=== PATIENT | female | born 1955 | race Caucasian/White ===

== ENCOUNTER → 2023-10-16 10:13 | Outpatient (REF) | payer OTHER, SELFPAY | LOC: WDC 10:13 | PROVIDERS: ATTENDING PHYSICIAN Physician Assistant | DX: Z12.31 Encounter for screening mammogram for malignant neoplasm of breast (principal) | CPT/HCPCS: 77063; 77067 ==

== ENCOUNTER → 2023-10-21 12:35 | Outpatient (REF) | payer OTHER, SELFPAY | LOC: HWRAD 12:35 | PROVIDERS: ATTENDING PHYSICIAN Physician Assistant | DX: R82.90 Unspecified abnormal findings in urine (principal); R14.0 Abdominal distension (gaseous) | CPT/HCPCS: 76830; 76856 ==

== ENCOUNTER → 2023-10-26 10:19 | Outpatient (REF) | payer OTHER, SELFPAY | LOC: WDC 10:19 | PROVIDERS: ATTENDING PHYSICIAN Physician Assistant | DX: R92.8 Other abnormal and inconclusive findings on diagnostic imaging of breast (principal) | CPT/HCPCS: 77065 ==

== ENCOUNTER → 2023-11-03 06:33 | Outpatient (REF) | payer OTHER, SELFPAY ==
--- NOTE | 2023-11-03 09:50 | OID.BR.INTR ---
COURTNEYD Breast Navigator - Initial
- -
Date of Contact: 11/03/23
Met with patient. Patient given written information on navigator services and support services available at [facility]. Will follow up as needed per protocol.
== END ==
LOC: WDC 06:33
PROVIDERS: ATTENDING PHYSICIAN Physician Assistant
DX: R92.1 Mammographic calcification found on diagnostic imaging of breast (principal)
CPT/HCPCS: 88305; 19081; 76098; 88341; 88342; 88360; A4648

== ENCOUNTER → 2023-11-11 07:33 | Outpatient (REF) | payer OTHER, SELFPAY | LOC: WDC 07:33 | PROVIDERS: ATTENDING PHYSICIAN Surgery; FAMILY PHYSICIAN Physician Assistant | DX: R92.2 Inconclusive mammogram (principal); C50.412 Malignant neoplasm of upper-outer quadrant of left female breast; Z17.0 Estrogen receptor positive status [ER+] | CPT/HCPCS: 76641 ==

== ENCOUNTER → 2023-11-17 08:52 | Outpatient (REF) | payer OTHER, SELFPAY | LOC: WDC 08:52 | PROVIDERS: ATTENDING PHYSICIAN Surgery; FAMILY PHYSICIAN Physician Assistant | DX: N63.11 Unspecified lump in the right breast, upper outer quadrant (principal) | CPT/HCPCS: 88305; 19083; 77065; 88342; 88360; A4648 ==

== ENCOUNTER → 2023-12-04 09:20 | Outpatient (REF) | payer OTHER, SELFPAY | LOC: RCS 09:20 | PROVIDERS: ATTENDING PHYSICIAN Obstetrics & Gynecology Gynecology; FAMILY PHYSICIAN Physician Assistant | DX: N85.00 Endometrial hyperplasia, unspecified (principal) | CPT/HCPCS: 93005 ==

== ENCOUNTER → 2023-12-31 13:40 | Outpatient (REF) | payer OTHER, SELFPAY | LOC: WDC 13:40 | PROVIDERS: ATTENDING PHYSICIAN Surgery; FAMILY PHYSICIAN Physician Assistant | DX: C50.412 Malignant neoplasm of upper-outer quadrant of left female breast (principal); Z17.0 Estrogen receptor positive status [ER+] | CPT/HCPCS: 19281; 38792; A4648; A9541 ==

== ENCOUNTER 2024-01-01 06:16 | Day surgery (SDC) | payer OTHER, SELFPAY ==
[2023-12-29 07:26] VITALS: BMI 26.7
[2023-12-29 08:48] LABS: Hematocrit 46.3 % (37.0-47.0); Mean Corp Hgb Conc. 34.6 g/dL (33.0-37.0); Mean Corpuscular Hgb 29.6 pg (27.0-31.0); Mean Corpuscular Volume 85.7 fL (81.0-99.0); Mean Platelet Volume 9.6 fL (7.4-10.4); Platelet Count 315 10^3/uL (130-400); Red Cell Dist. Width 12.1 % (11.5-14.5); White Blood Cell Count 5.4 10^3/uL (4.8-10.8)
[2023-12-29 09:10] LABS: ALT (SGPT) 19 U/L (0-35); AST (SGOT) 24 U/L (14-36); Albumin 4.3 g/dl (3.5-5.0); Alkaline Phosphatase 78 U/L (38-126); Blood Urea Nitrogen 16 mg/dl (7-17); Carbon Dioxide 29 mmol/L (22-30); Chloride 103 mmol/L (98-107); Estimated Creatinine Clearance 84 ml/min; Glucose 130 mg/dl (70-99); Potassium 4.7 mmol/L (3.5-5.1); Sodium 139 mmol/L (135-145); Total Bilirubin 1.2 mg/dl (0.2-1.3); Total Protein 6.9 g/dl (6.3-8.2); eGFR > 60.00
[2023-12-29 09:52] LABS: Prealbumin (Transthyretin) 23.6 mg/dl (17.6-36.0)
[2023-12-29 10:03] LABS: Vitamin D, 25-OH*** 24.1 ng/mL (30-80)
[2024-01-01] VITALS (11 sets, daily range): BP systolic 124–156; BP diastolic 64–90; BMI 26.6; BMI 26.7
[2024-01-01] MEDS: TYLENOL 1000 MG PO (07:41)
[2024-01-01] MEDS: LOVENOX 40 MG SC (09:35)
--- NOTE | 2024-01-01 12:18 | W.IMMPOSTOP ---
Surgical Immed Post Op Note
-
Primary Surgeon: Roxana
Assisting Surgeon: None
Pre-op Diagnosis: Left breast ca
Post-op Diagnosis: Same
Procedure Performed: Left localized lumpectomy sentinel node mapping and biopsy
Anesthesia Type: TIVA converted to GET
Specimen / Cultures: Left lumpectomy, sentinel nodes, margins
Estimated Blood Loss: 4cc
Complications: None
Operative Findings: Negative nodes on frozen section; clip and mass in specimen
Smithwick Node Bx Breast Cancer
Smithwick Node Bx Breast Cancer
Operation performed with curative intent: Yes
Tracer(s) to ID [place] Nodes in Non-Neoadjuvant setting: Radioactive Tracer
Tracer(s) to ID Sentinal Nodes in the Neoadjuvant Setting: N/A
All nodes at end of dye-filled Lymphatic Channel removed: N/A
All Significantly Radioactive Nodes were removed: Yes
All Palpably Suspicious Nodes were Removed: Yes
Bx Proven Pos Nodes Marked Prior to Chemo ID'd & Removed: N/A
[2024-01-01] MEDS: SUBLIMAZE 25 MCG IV (13:33)
--- NOTE | 2024-01-01 13:39 | SUR.PHASEI ---
Report to [facility] for Lunch cvoevr. Dena Marie RN BSN.
== END 2024-01-01 15:15 | disposition home or self-care (01) ==
LOC: SDS 06:16
PROVIDERS: ATTENDING PHYSICIAN Surgery; FAMILY PHYSICIAN Physician Assistant
DX: C50.912 Malignant neoplasm of unspecified site of left female breast (principal); N60.32 Fibrosclerosis of left breast
CPT/HCPCS: 38525; 19301; 88305; 88307; 88332; 19281; 36415; 76098; 80053; 82306; 84134; 85027; 88331; 88341; 88342; 93005; A4648

== ENCOUNTER → 2024-02-18 15:33 | Outpatient (REF) | payer OTHER, SELFPAY | LOC: WDC 15:33 | PROVIDERS: ATTENDING PHYSICIAN Surgery; FAMILY PHYSICIAN Physician Assistant | DX: C50.412 Malignant neoplasm of upper-outer quadrant of left female breast (principal) | CPT/HCPCS: 77061; 77065 ==

== ENCOUNTER → 2024-05-15 07:27 | Outpatient (REF) | payer OTHER, SELFPAY | LOC: MRI 3T 07:27 | PROVIDERS: ATTENDING PHYSICIAN Pain Medicine Interventional Pain Medicine; FAMILY PHYSICIAN Physician Assistant | DX: M54.16 Radiculopathy, lumbar region (principal) | CPT/HCPCS: 72148 ==

== ENCOUNTER 2024-06-08 08:32 | Emergency (ER) | payer OTHER, SELFPAY ==
[2024-06-08 08:35] VITALS: BP 229/103
[2024-06-08 08:53] LABS: % Basophils 0.6 % (0-2); % Eosinophils 0.9 % (0-6); % Immature Granulocytes 0.4 % (0-0.5); % Lymphocytes 30.8 % (20.5-51.1); % Monocytes 7.3 % (1.7-9.3); Absolute Lymphocytes 1.4 10^3/uL (1.2-3.4); Absolute Monocytes 0.3 10^3/uL (0.1-0.6); Absolute Neutrophils 2.8 10^3/uL (1.4-6.5); Hematocrit 43.5 % (37.0-47.0); Hemoglobin 15.7 g/dL (12.0-16.0); Mean Corp Hgb Conc. 36.1 g/dL (33.0-37.0); Mean Corpuscular Hgb 29.7 pg (27.0-31.0); Mean Corpuscular Volume 82.2 fL (81.0-99.0); Mean Platelet Volume 9.1 fL (7.4-10.4); Nucleated Red Blood Cells % 0 %; Platelet Count 272 10^3/uL (130-400); Red Blood Cell Count 5.29 10^6/uL (4.20-5.40); Red Cell Dist. Width 12.1 % (11.5-14.5); White Blood Cell Count 4.7 10^3/uL (4.8-10.8)
[2024-06-08 09:00] VITALS: BP 188/96
[2024-06-08 09:06] LABS: ALT (SGPT) 23 U/L (0-35); AST (SGOT) 27 U/L (14-36); Albumin 4.7 g/dl (3.5-5.0); Alkaline Phosphatase 82 U/L (38-126); Blood Urea Nitrogen 15 mg/dl (7-17); Calcium 9.6 mg/dl (8.4-10.2); Carbon Dioxide 29 mmol/L (22-30); Chloride 103 mmol/L (98-107); Glucose 112 mg/dl (70-99); Sodium 142 mmol/L (135-145); Total Bilirubin 1.3 mg/dl (0.2-1.3); Total Protein 7.2 g/dl (6.3-8.2); eGFR > 60.00
[2024-06-08 09:17] LABS: Troponin I < 0.012 ng/ml
[2024-06-08 09:52] VITALS: BP 163/77
[2024-06-08] MEDS: ORETIC 12.5 MG PO (09:56)
[2024-06-08] MEDS: ZESTRIL 10 MG PO (09:56)
--- NOTE | 2024-06-08 13:25 | ED.GENMED ---
History of Present Illness
General
Chief Complaint: Blood Pressure Problem
Source: patient
Time Seen by Provider: 06/08/24 08:50
History of Present Illness
History of Present Illness:
68-year-old female presents to the emergency room for evaluation of an elevated blood pressure. Patient with a physical therapy today and the physical therapist told her she needed to come to the emergency room immediately due to elevated blood
pressure. Patient denies any headache, chest pain, shortness of breath. Patient has had elevated blood pressures for some time but she has not taken any medication for it.
Past History
Past History
ED Past Medical History: Other (Kidney stones )
ED Past Surgical History: Gynecological (Exploratory laparotomy )
Social History
Tobacco: Former smoker
Alcohol: None
Drug: None
Personal:
Living: with family
Employment: Employed
Phy Exam
Physical Exam
Physical Exam:
General: Awake, Alert, Oriented X3. No acute distress.
Vitals: Hypertensive
Head: Atraumatic
Eyes: Pupils equal, EOMI
Throat: Airway intact, no exudates
Neck: Trachea midline
Lungs: Clear and equal b/l
Heart: Regular rate, no murmurs
Abd: Soft, Nontender, No pulsatile mass
Neuro: Nonfocal
Skin: Warm, dry, no rash
Extremities: pulses equal b/l, no edema
Course
Orders/Labs/Results
Orders:
Orders
06/08/24 08:43
Electrocardiogram (*1) Urgent
Reason for Study: Hypertension, Benign
EKG- Treatment ONCE
06/08/24 08:44
Complete Blood Count/With Diff Urgent
Comprehensive Metabolic Panel Urgent
Troponin I Urgent
06/08/24 09:35
Hydrochlorothiazide [Oretic] 12.5 mg PO NOW ONE
Lisinopril [Zestril] 10 mg PO NOW STA
06/08/24 09:47
Hydrochlorothiazide [Oretic] 25 mg .ROUTE .STK-MED ONE
06/08/24 09:49
Hydrochlorothiazide [Oretic] 12.5 mg PO NOW STA
Abnormal Lab Results
06/08/24
08:44
WBC 4.7 L 10^3/uL
(4.8-10.8)
Glucose 112 H mg/dl
(70-99)
06/08/24 08:44
06/08/24 08:44
Vital Signs
Initial and Last Documented VS:
Initial Vital Signs
Temp Pulse Resp BP Pulse Ox
98.0 F 72 16 229/103 98
06/08/24 08:35 06/08/24 08:35 06/08/24 08:35 06/08/24 08:35 06/08/24 08:35
Last Documented Vital Signs
Temp Pulse Resp BP Pulse Ox
98.0 F 77 16 163/77 99
06/08/24 08:35 06/08/24 09:52 06/08/24 09:52 06/08/24 09:52 06/08/24 09:00
MDM/Problems Addressed
Differential Diagnosis Includes:
Asymptomatic hypertension
MDM/Problems Addressed:
Patient presents with asymptomatic hypertension. Labs are unremarkable. EKG shows no acute abnormalities. We will start the patient on an DAVIAN inhibitor and hydrochlorothiazide. Patient stable for discharge home and outpatient follow-up
*EKG
Interpretation: normal
Heart Rate: 68
Rate: normal
Rhythm: sinus
Interval: normal interval
QRS Pattern: normal QRS
Ischemia: no ischemia
*Tower Foreman Interpretation
Rate: normal
Interpretation: normal
Rhythm: sinus
*Critical Care Note
Total Time (30-74mins, 75-104mins- exclusive of procedures): Not Applicable
ED Attending Note
-
Portions of this chart may have been created with voice recognition software.� Occasional wrong word or��sound alike� substitutions may have occurred due to the inherent limitations of voice recognition software.
Discharge Plan
Departure
Patient Disposition: Home (Routine Discharge)
Date of Disposition: 06/08/24
Time of Disposition: 09:38
Patient with high blood pressure during this ER visit?: Yes
Condition: Good
Discharge Problem:
Uncontrolled hypertension
Instructions: High Blood Pressure (DC)
Prescriptions:
New
lisinopril 10 mg tablet
10 mg PO DAILY Qty: 30 0RF
hydrochlorothiazide 12.5 mg tablet
12.5 mg PO DAILY Qty: 30 0RF
No Action
ascorbic acid (vitamin C) [Vitamin C] 1,000 mg Tablet
1 g PO DAILY
cinnamon bark [Cinnamon] 500 mg Capsule
500 mg PO DAILY
cholecalciferol (vitamin D3) [Vitamin D3] 25 mcg (1,000 unit) Tablet
25 mcg PO DAILY
cranberry extract 650 mg Capsule
650 mg PO DAILY
Referrals:
Valentina Azar PA [Family Provider] -
Activity Restrictions/Additional Instructions:
Please follow-up with your family doctor in about a week to assess the response of your blood pressure to the new medications. You may also need some blood work in the near future to check your potassium level.
Interventions
Interventions:
*Risk Screen - Suicide Last Done: 06/08/24 08:35
*Neglect/Abuse Screening Last Done: 06/08/24 08:35
*Nursing Disposition Last Done: 06/08/24 10:04
ED- Cardiac Assessment Last Done: 06/08/24 09:15
ED- Neurological Assessment Last Done: 06/08/24 09:15
ED- Pulmonary Assessment Last Done: 06/08/24 09:15
Discharge Date and Time
Discharge Date/Time: 06/08/24 10:05
Print Language: OMANI
== END 2024-06-08 10:05 | disposition home or self-care (01) ==
LOC: EMR 08:32
PROVIDERS: Emergency Medicine; EMERGENCY PHYSICIAN Emergency Medicine; FAMILY PHYSICIAN Physician Assistant
DX: I10 Essential (primary) hypertension (principal); Z87.891 Personal history of nicotine dependence
CPT/HCPCS: 99284; 80053; 84484; 85025; 93005

== ENCOUNTER 2024-06-29 06:35 | Outpatient (RCR) | payer OTHER, SELFPAY | END 2024-06-29 23:59 | disposition home or self-care (01) | LOC: RPT 06:35 | PROVIDERS: ATTENDING PHYSICIAN Pain Medicine Interventional Pain Medicine; FAMILY PHYSICIAN Physician Assistant | DX: M54.16 Radiculopathy, lumbar region (principal); Z73.6 Limitation of activities due to disability | CPT/HCPCS: 97010; 97110; 97162; 97530 ==

== ENCOUNTER 2025-03-20 06:14 | Day surgery (SDC) | payer OTHER, SELFPAY | END 2025-03-20 09:45 | disposition home or self-care (01) | LOC: GI 06:14 | PROVIDERS: ATTENDING PHYSICIAN Internal Medicine Gastroenterology | DX: Z12.11 Encounter for screening for malignant neoplasm of colon (principal); K57.30 Diverticulosis of large intestine without perforation or abscess without bleeding; K64.8 Other hemorrhoids; Z86.0100 Personal history of colon polyps, unspecified; Z80.0 Family history of malignant neoplasm of digestive organs | CPT/HCPCS: G0105 ==

== ENCOUNTER → 2025-05-31 12:24 | Outpatient (REF) | payer OTHER, SELFPAY | LOC: WDC 12:24 | PROVIDERS: ATTENDING PHYSICIAN Physician Assistant | DX: Z85.3 Personal history of malignant neoplasm of breast (principal); Z12.31 Encounter for screening mammogram for malignant neoplasm of breast | CPT/HCPCS: 77063; 77067 ==